=== PATIENT | female | born 1995 | race Caucasian/White ===

== ENCOUNTER 2019-08-18 14:51 | Emergency (ER) | payer OTHER ==
[~2019-08-18] VITALS: Ht 157.5 cm; Wt 49.0 kg
[2019-08-18 15:14] LABS: URINE BILIRUBIN NEGATIVE (Negative); URINE BLOOD NEGATIVE (Negative); URINE CLARITY CLEAR; URINE COLOR YELLOW; URINE GLUCOSE-RANDOM NEGATIVE (Negative); URINE KETONES TRACE (Negative); URINE LEUKOCYTES-REFLEX TRACE (Negative); URINE PROTEIN NEGATIVE (Negative); URINE SPECIFIC GRAVITY 1.025 (1.005-1.030); URINE UROBILINOGEN 0.2 E.U./dl (0.2-1.0)
[2019-08-18 15:15] LABS: URINE NITRITE-REFLEX POSITIVE (Negative)
[2019-08-18 15:23] LABS: BACTERIA-REFLEX >30 Many /HPF (None Seen); SQUAMOUS >10 Many /LPF (0-3); URINE RBC 0-2 Rare /HPF (0-2); URINE WBC-REFLEX 6-15 Few /HPF (0-5)
[2019-08-18 15:24] LABS: CASTS None Seen /LPF (None Seen); CRYSTALS None Seen /LPF (None Seen); MUCUS 4-6 Moderate strn/LPF (None Seen)
[2019-08-18] MEDS ORDERED: NORCO 5-325 TA1 EAC1 PO (16:23)
[2019-08-18] MEDS ORDERED: ZANAFLEX4 MG PO (16:23)
[2019-08-18] MEDS ORDERED: KEFLEX500 M1 PO (16:23)
[2019-08-18 16:40] VITALS: BP 111/62
== END 2019-08-18 16:41 | disposition home or self-care (01) ==
LOC: M.ERS 14:51
PROVIDERS: Nurse Practitioner Family
DX: M54.42 Lumbago with sciatica, left side (principal); N39.0 Urinary tract infection, site not specified

== ENCOUNTER → 2019-11-22 | Emergency (ER) | payer OTHER ==
[~2019-11-22] VITALS: Ht 157.5 cm; Wt 49.9 kg
[~2019-11-22] MED LIST: KEFLEX500 M1 PO; MACROBID 100 M100 M2 PO; NORCO 5-325 TA1 EAC1 PO; ONDANSETRON HCL4 M2 PO; TYLENOL WITH CO1 TA1 PO; ZANAFLEX4 MG PO
[2019-11-22 16:52] LABS: ABSOLUTE BASOPHILS 0.1 thou/uL (0.0-0.2); ABSOLUTE EOSINOPHILS 0.1 thou/uL (0.0-0.7); ABSOLUTE LYMPHOCYTES 2.5 thou/uL (0.8-5.3); ABSOLUTE MONOCYTES 0.4 thou/uL (0.0-1.2); BASOPHILS 0.9 %; EOSINOPHILS 0.8 %; HEMOGLOBIN 14.7 gm/dL (12.0-15.0); LYMPHOCYTES 35.6 %; MCH 32.3 pg (26.0-34.0); MCHC 35.1 g/dL (28.0-37.0); MONOCYTES 5.7 %; MPV 8.5 fl. (7.2-11.1); NUCLEATED RBCS 0 /100WBC; PLATELET COUNT* 158 thou/uL (150-400); RBC 4.56 mil/uL (4.20-5.00); RDW-CV 13.2 % (10.5-14.5); WBC 6.9 thou/uL (4.0-11.0)
[2019-11-22 17:00] LABS: URINE BILIRUBIN NEGATIVE (Negative); URINE BLOOD NEGATIVE (Negative); URINE CLARITY CLEAR; URINE COLOR YELLOW; URINE GLUCOSE-RANDOM NEGATIVE (Negative); URINE KETONES NEGATIVE (Negative); URINE LEUKOCYTES-REFLEX 1+ (Negative); URINE NITRITE-REFLEX NEGATIVE (Negative); URINE PROTEIN NEGATIVE (Negative); URINE UROBILINOGEN 0.2 E.U./dl (0.2-1.0)
[2019-11-22 17:02] LABS: CALCIUM 8.4 mg/dL (8.5-10.1); CREATININE 0.8 mg/dL (0.6-1.3); POTASSIUM 3.8 mmol/L (3.5-5.1)
[2019-11-22 17:06] LABS: TOTAL BILIRUBIN 0.7 mg/dL (<0.1-1.0); TOTAL PROTEIN 7.5 g/dL (6.4-8.2)
[2019-11-22 17:10] LABS: BACTERIA-REFLEX 1-9 Few /HPF (None Seen); CASTS None Seen /LPF (None Seen); CRYSTALS None Seen /LPF (None Seen); SQUAMOUS 0-3 Few /LPF (0-3); URINE RBC 0-2 Rare /HPF (0-2); URINE WBC-REFLEX 0-5 Rare /HPF (0-5)
[2019-11-22 17:34] VITALS: BP 120/72
== END ==
LOC: M.ERS 15:01
PROVIDERS: Nurse Practitioner Family
DX: N39.0 Urinary tract infection, site not specified (principal); K59.00 Constipation, unspecified; R11.2 Nausea with vomiting, unspecified

== ENCOUNTER 2020-02-01 14:54 | Emergency (ER) | payer OTHER ==
[~2020-02-01] VITALS: Ht 157.5 cm; Wt 49.9 kg
[2020-02-01 16:54] LABS: URINE BILIRUBIN NEGATIVE (Negative); URINE BLOOD 3+ (Negative); URINE CLARITY CLEAR; URINE COLOR YELLOW; URINE GLUCOSE-RANDOM NEGATIVE (Negative); URINE KETONES NEGATIVE (Negative); URINE LEUKOCYTES-REFLEX NEGATIVE (Negative); URINE NITRITE-REFLEX NEGATIVE (Negative); URINE PROTEIN NEGATIVE (Negative); URINE SPECIFIC GRAVITY >= 1.030 (1.005-1.030)
[2020-02-01 17:00] LABS: SQUAMOUS >10 Many /LPF (0-3)
[2020-02-01 17:01] LABS: BACTERIA-REFLEX None Seen /HPF (None Seen); CASTS None Seen /LPF (None Seen); CRYSTALS None Seen /LPF (None Seen); MUCUS 0-3 Light strn/LPF (None Seen); URINE RBC >20 Many /HPF (0-2); URINE WBC-REFLEX 0-5 Rare /HPF (0-5)
[2020-02-01] MEDS ORDERED: ONDANSETRON ODT4 MG PO ×2 (17:08→17:16)
[2020-02-01] MEDS ORDERED: MEDROLDOSEPACK PO ×2 (17:08→17:16)
[2020-02-01] MEDS ORDERED: KEFLEX500 M1 PO ×2 (17:08→17:16)
[2020-02-01] MEDS ORDERED: PROAIR HFA8.5 GM INH ×2 (17:08→17:16)
[2020-02-01 17:28] VITALS: BP 131/71
--- NOTE | 2020-02-02 17:26 | EKG ---
[place] [address] ELECTROCARDIOGRAM REPORT Name: SANTA QUIJANO Room: [facility]#: [id number] Admission: 02/01/20 Attend Phys: Discharge: 02/01/20 Date of : [birth year] Date of Service: 02/01/20 1514 Report #: [id number] THIS REPORT FOR: //name// [facility] ED Test Date: 2020-02-01 Test Time: 15:14:36 Pat Name: SANTA QUIJANO Department: Room: Gender: Gynecological Assistant: [facility] : [id number] Requested By: Mireya Torrez Order Number: [id number] MD: Greg Correa Measurements Intervals [place] Rate: 86 P: 71 NM: 119 QRS: 69 QRSD: 100 T: 27 QT: 341 QTc: 408 Interpretive Statements Sinus rhythm Atrial premature complex Borderline short NM interval RSR' in V1 or V2, right VCD or RVH Baseline wander in lead(s) III No previous ECG available for comparison Electronically Signed On 02-02-2020 17:25:58 CDT by Greg Correa [email or web address] <ELECTRONICALLY SIGNED> By: Greg Correa MD, [facility] 02/02/20 1725 1514 1514 Greg Correa MD, [facility] /EPI
== END 2020-02-01 17:29 | disposition home or self-care (01) ==
LOC: M.ERS 14:54
PROVIDERS: Physician Assistant
DX: J20.9 Acute bronchitis, unspecified (principal); Z20.828 Contact with and (suspected) exposure to other viral communicable diseases; Z86.14 Personal history of Methicillin resistant Staphylococcus aureus infection

== ENCOUNTER 2020-02-17 18:03 | Emergency (ER) | payer OTHER ==
[~2020-02-17] VITALS: Ht 157.5 cm; Wt 47.6 kg
[~2020-02-17 18:03] MED LIST changes: +MEDROLDOSEPACK PO; +ONDANSETRON ODT4 MG PO; +PROAIR HFA8.5 GM INH
[2020-02-17] MEDS ORDERED: NORCO 5-325 TA1 EAC2 PO (20:12)
[2020-02-17] MEDS ORDERED: IBUPROFEN 800800 M1 PO (20:12)
[2020-02-17 20:33] VITALS: BP 102/66
== END 2020-02-17 20:34 | disposition home or self-care (01) ==
LOC: M.ERS 18:03
DX: S90.112A Contusion of left great toe without damage to nail, initial encounter (principal); W20.8XXA Other cause of strike by thrown, projected or falling object, initial encounter; Y93.89 Activity, other specified; Y92.89 Other specified places as the place of occurrence of the external cause; Y99.9 Unspecified external cause status

== ENCOUNTER 2020-10-12 18:43 | Emergency (ER) | payer OTHER ==
[~2020-10-12] VITALS: Ht 157.5 cm; Wt 49.0 kg
[~2020-10-12 18:43] MED LIST changes: +IBUPROFEN 800800 M1 PO; +NORCO 5-325 TA1 EAC2 PO
[2020-10-12 19:16] LABS: ABSOLUTE LYMPHOCYTES 2.2 thou/uL (0.8-5.3); ABSOLUTE MONOCYTES 0.5 thou/uL (0.0-1.2); BASOPHILS 0.4 %; EOSINOPHILS 0.5 %; HEMATOCRIT 39.8 % (37.0-47.0); HEMOGLOBIN 13.7 gm/dL (12.0-15.0); LYMPHOCYTES 25.7 %; MCH 31.3 pg (26.0-34.0); MCHC 34.5 g/dL (28.0-37.0); MCV 90.7 fL (80.0-100.0); MONOCYTES 5.3 %; MPV 8.2 fl. (7.2-11.1); NUCLEATED RBCS 0 /100WBC; PLATELET COUNT* 146 thou/uL (150-400); POLYS 68.1 %; RBC 4.39 mil/uL (4.20-5.00); RDW-CV 12.7 % (10.5-14.5); WBC 8.7 thou/uL (4.0-11.0)
[2020-10-12 19:24] LABS: CALCIUM 8.4 mg/dL (8.5-10.1); CREATININE 0.8 mg/dL (0.6-1.3); POTASSIUM 3.2 mmol/L (3.5-5.1)
[2020-10-12 19:28] LABS: URINE BILIRUBIN NEGATIVE (Negative); URINE BLOOD NEGATIVE (Negative); URINE CLARITY CLEAR; URINE COLOR YELLOW; URINE GLUCOSE-RANDOM NEGATIVE (Negative); URINE KETONES NEGATIVE (Negative); URINE LEUKOCYTES-REFLEX NEGATIVE (Negative); URINE NITRITE-REFLEX NEGATIVE (Negative); URINE PROTEIN NEGATIVE (Negative); URINE SPECIFIC GRAVITY >= 1.030 (1.005-1.030); URINE UROBILINOGEN 0.2 E.U./dl (0.2-1.0)
[2020-10-12 19:29] LABS: ALBUMIN 3.8 g/dL (3.4-5.0); TOTAL BILIRUBIN 0.7 mg/dL (<0.1-1.0); TOTAL PROTEIN 7.2 g/dL (6.4-8.2)
[2020-10-12] MEDS ORDERED: ULTRAM 50MG TAB50 MG PO (20:37)
[2020-10-12] MEDS ORDERED: MOBIC7.5 MG PO (20:37)
[2020-10-12] MEDS ORDERED: ONDANSETRON HCL4 M2 PO (20:37)
[2020-10-12 20:52] VITALS: BP 112/70
== END 2020-10-12 20:53 | disposition home or self-care (01) ==
LOC: M.ERS 18:43
PROVIDERS: Nurse Practitioner
DX: N83.202 Unspecified ovarian cyst, left side (principal); N83.201 Unspecified ovarian cyst, right side; R11.0 Nausea; Z88.6 Allergy status to analgesic agent; Z91.013 Allergy to seafood

== ENCOUNTER 2020-10-15 15:14 | Emergency (ER) | payer OTHER ==
[~2020-10-15] VITALS: Ht 157.5 cm; Wt 49.0 kg
[~2020-10-15 15:14] MED LIST changes: +MOBIC7.5 MG PO; +ULTRAM 50MG TAB50 MG PO
[2020-10-15 15:39] LABS: URINE BILIRUBIN NEGATIVE (Negative); URINE BLOOD NEGATIVE (Negative); URINE CLARITY CLEAR; URINE COLOR YELLOW; URINE GLUCOSE-RANDOM NEGATIVE (Negative); URINE KETONES NEGATIVE (Negative); URINE LEUKOCYTES-REFLEX TRACE (Negative); URINE NITRITE-REFLEX NEGATIVE (Negative); URINE PROTEIN NEGATIVE (Negative)
[2020-10-15 15:49] LABS: CALCIUM 8.8 mg/dL (8.5-10.1); CREATININE 0.7 mg/dL (0.6-1.3); POTASSIUM 3.6 mmol/L (3.5-5.1)
[2020-10-15 15:53] LABS: ABSOLUTE LYMPHOCYTES 1.8 thou/uL (0.8-5.3); ABSOLUTE MONOCYTES 0.5 thou/uL (0.0-1.2); ABSOLUTE NEUTROPHILS 5.7 thou/uL (1.6-8.1); BASOPHILS 0.4 %; EOSINOPHILS 0.5 %; HEMATOCRIT 38.7 % (37.0-47.0); HEMOGLOBIN 13.6 gm/dL (12.0-15.0); LYMPHOCYTES 21.9 %; MCH 31.7 pg (26.0-34.0); MCHC 35.3 g/dL (28.0-37.0); MCV 89.9 fL (80.0-100.0); MONOCYTES 5.9 %; MPV 8.2 fl. (7.2-11.1); NUCLEATED RBCS 0 /100WBC; PLATELET COUNT* 144 thou/uL (150-400); POLYS 71.3 %; RDW-CV 13.1 % (10.5-14.5)
[2020-10-15 15:54] LABS: TOTAL BILIRUBIN 0.6 mg/dL (<0.1-1.0); TOTAL PROTEIN 7.3 g/dL (6.4-8.2)
[2020-10-15 16:07] LABS: CASTS None Seen /LPF (None Seen); CRYSTALS None Seen /LPF (None Seen); MUCUS None Seen strn/LPF (None Seen); SQUAMOUS >10 Many /LPF (0-3); URINE RBC None Seen /HPF (0-2); URINE WBC-REFLEX 0-5 Rare /HPF (0-5)
[2020-10-15] MEDS ORDERED: ONDANSETRON ODT4 MG PO (17:41)
[2020-10-15] MEDS ORDERED: NORCO5 PO ×3 (17:41→18:12)
[2020-10-15 17:55] VITALS: BP 114/72
== END 2020-10-15 17:55 | disposition home or self-care (01) ==
LOC: M.ERS 15:14
PROVIDERS: Family Medicine
DX: N83.202 Unspecified ovarian cyst, left side (principal); Z88.8 Allergy status to other drugs, medicaments and biological substances; Z91.013 Allergy to seafood

== ENCOUNTER 2020-10-19 16:09 | Emergency (ER) | payer OTHER ==
[~2020-10-19] VITALS: Ht 157.5 cm; Wt 49.0 kg
[~2020-10-19 16:09] MED LIST changes: +NORCO5 PO
[2020-10-19 16:46] LABS: HEMATOCRIT 39.1 % (37.0-47.0); HEMOGLOBIN 13.4 gm/dL (12.0-15.0); MCH 31.3 pg (26.0-34.0); MCHC 34.2 g/dL (28.0-37.0); MCV 91.6 fL (80.0-100.0); RBC 4.27 mil/uL (4.20-5.00); RDW-CV 13.4 % (10.5-14.5); WBC 8.2 thou/uL (4.0-11.0)
[2020-10-19 17:09] VITALS: BP 112/67
== END 2020-10-19 17:10 | disposition home or self-care (01) ==
LOC: M.ERS 16:09
PROVIDERS: Nurse Practitioner Family
DX: R23.3 Spontaneous ecchymoses (principal); Z79.899 Other long term (current) drug therapy; Z88.6 Allergy status to analgesic agent; Z91.013 Allergy to seafood